=== PATIENT | male | born 1985 | race Caucasian/White ===

== ENCOUNTER 2016-10-10 19:19 | Emergency (ER) | payer BC ==
[2016-10-10 19:31] VITALS: BP 131/82
--- NOTE | 2016-10-10 20:06 | UC ---
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 - History of Current Complaint Chief Complaint: UCGU Stated Complaint: PERSONAL Time Seen by Provider: 10/10/16 19:33 Hx Obtained From: Patient Onset/Duration: Gradual Onset, Lasting Days Timing: Constant Severity Initially: Mild Severity Currently: Severe Pain Intensity: 6 - worse when motrin wears off Pain Scale Used: 0-10 Numeric Location: Testicle Aggravating Factor(s): Voiding Associated Signs And Symptoms: Positive: Diaphoresis, Fever - Allergies/Home Medications Allergies/Adverse Reactions: Allergies Allergy/AdvReac Type Severity Reaction Status Date / Time No Known Allergies Allergy Verified 10/10/16 19:27 Home Medications: Home Medications Glycopyrrolate TAB(NF) [Robinul TAB(NF)] 1 mg PO DAILY 10/10/16 [History Confirmed 10/10/16] PMH/Surg Hx/FS Hx/Imm Hx Previously Healthy: Yes - Surgical History Surgical History: Yes Surgery Procedure, Year, and Place: right ACL, left thumb surgery w/ pin placement - Family History Known Family History: Positive: Hypertension - Social History Alcohol Use: None Substance Use Type: None Smoking Status (MU): Never Smoked Tobacco Review of Systems Constitutional: Negative Skin: Negative Eyes: Negative ENT: Negative Respiratory: Negative Cardiovascular: Negative Gastrointestinal: Negative Genitourinary: Dysuria, Frequency, Urgency, Other - left testicular pain/ swelling Motor: Negative Neurovascular: Negative Musculoskeletal: Negative Neurological: Negative Psychological: Negative All Other Systems Reviewed And Are Negative: Yes Physical Exam Triage Information Reviewed: Yes Appearance: Well-Nourished, Pain Distress Vital Signs: Initial Vital Signs Temp 100.7 F 10/10/16 19:28 Pulse 113 10/10/16 19:28 Resp 16 10/10/16 19:28 BP 131/82 10/10/16 19:28 Pulse Ox 100 10/10/16 19:28 Vital Signs Reviewed: Yes Eyes: Positive: Conjunctiva Clear ENT: Positive: Hearing grossly normal. Negative: Nasal congestion, Nasal drainage, Tonsillar exudate, Trismus, Muffled/hoarse voice Neck: Positive: Supple, Nontender Respiratory: Positive: Lungs clear, Normal breath sounds, No respiratory distress, No accessory muscle use Cardiovascular: Positive: RRR, No Murmur Musculoskeletal: Positive: ROM Intact, No Edema Neurological Exam: Normal Neurological: Positive: Alert Psychological Exam: Normal Complaint Male Course/Dx - Course Course Of Treatment: exam: circumcised. right testicle normal and not tender. left hemisrotum tense and red/very tender/tranilluminate/unable to appreciate testicle due to swelling, tender left inguinal canal - Differential Dx/Diagnosis Provider Diagnoses: left testicular pain/fever/dysuria - Physician Notifications Discussed Patient Care With: DR OG - says they can do u/s at [facility] Discharge - Discharge Plan Condition: Good Disposition: AGAINST MEDICAL ADVICE Referrals: No Primary Care Phys,NOPCP [Primary Care Provider] -
== END 2016-10-10 20:10 | disposition left against medical advice (07) ==
LOC: UCCORT 19:19
DX: N50.812 Left testicular pain (principal); R50.9 Fever, unspecified; R30.0 Dysuria
CPT/HCPCS: 99212; G0463